=== PATIENT | male | born 1985 | race Two or more races ===

== ENCOUNTER → 2025-02-27 | Outpatient (CLI) | payer MEDICAID, SELFPAY ==
--- NOTE | 2025-02-27 09:46 | XR_ITS ---
Examination: Foot bilateral, 6 views Technique: AP, oblique, lateral views standing, each foot total 6 views Date and time of exam: February 27, 2025, 10 0 3:00 a.m. INDICATIONS: Difficulty walking of the patient's life, diagnosis pes planus FINDINGS: Mild osteopenia. Bilateral pes planus. 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
== END | disposition home or self-care (01) ==
PROVIDERS: PCP Nurse Practitioner Primary Care; Referring Provider Nurse Practitioner Primary Care; Visit Provider Nurse Practitioner Primary Care
DX: M21.41 Flat foot [pes planus] (acquired), right foot (principal); M21.42 Flat foot [pes planus] (acquired), left foot; M19.072 Primary osteoarthritis, left ankle and foot; M19.071 Primary osteoarthritis, right ankle and foot
CPT/HCPCS: 73630

== ENCOUNTER → 2025-03-14 | Outpatient (CLI) | payer MEDICAID, SELFPAY ==
--- NOTE | 2025-03-14 09:20 | XR_ITS ---
Examination: Knee bilateral, 4 views Technique: AP lateral right and left knees total 4 views Date and time: March 14, 2025, 0948 hours INDICATION: Bilateral knee pain several years. FINDINGS: No fracture or dislocation involving either knee No erosive or other significant arthritic change involving either knee No foreign bodies IMPRESSION: No erosive or other significant arthritic change involving either knee
--- NOTE | 2025-03-14 09:20 | XR_ITS ---
EXAMINATION: Bilateral lower legs 4 views TECHNIQUE: AP lateral right tibia-fibula left tibia fibula total 4 views Date and time: March 14, 2025, 0955 hours INDICATIONS: Bilateral lower leg pain several years FINDINGS: No fracture or dislocation involving either lower leg No definite genu varum or valgus deformity No cortical bone destruction No foreign bodies IMPRESSION: Negative for osseous abnormalities
--- NOTE | 2025-03-14 09:20 | XR_ITS ---
Examination: Bilateral hips, AP pelvis, 5 views Technique: AP, lateral views both hips, AP pelvis, 5 views Exam date and time: March 14, 2025, 0929 hours INDICATIONS: Bilateral hip pain beginning several years ago FINDINGS: No right or left hip fracture or dislocation No hip joint narrowing Bones of the pelvis intact IMPRESSION: Negative for osseous abnormality
== END | disposition home or self-care (01) ==
LOC: CDIM 09:03
PROVIDERS: PCP Nurse Practitioner Primary Care; Referring Provider Nurse Practitioner Primary Care; Visit Provider Nurse Practitioner Primary Care
DX: M25.562 Pain in left knee (principal); M25.561 Pain in right knee; M25.552 Pain in left hip; M25.551 Pain in right hip; M79.662 Pain in left lower leg; M79.661 Pain in right lower leg
CPT/HCPCS: 73523; 73560; 73590